=== PATIENT | male | born 1945 | race Caucasian/White ===

== ENCOUNTER 2016-05-06 10:46 | Inpatient (IN) | payer MEDICARE ==
[2016-05-06] VITALS (12 sets, daily range): BP systolic 97–124; BP diastolic 71–91
[~2016-05-06] VITALS: Ht 177.8 cm; Wt 108.0 kg
[~2016-05-06 10:46] MED LIST: AMIO200T10 PO; AMIO400T5 PO; ASPI-875 PO; ATOR10TA66 PO; BILB500C PO; DIGO125T PO; DILT180C82 PO; DILT360C19 PO; DILT360C30 PO; DULO60CA58 PO; FRSM40T PO; FURO20TA4 PO; FURO40TA4 PO; GRAP50CA5 PO; LAMO25TA13 PO; LUTE20CA2 PO; MAGN400C PO; METO25TA2 PO; MTP25TSR PO; MULT-974 PO; OMG1KC PO; PANT40TA2 PO; POTA10CA43 PO; RIVA20TA2 PO; SUCR1TAB36 PO; SULF1TAB35 PO; WARF5TAB8 PO; WARF7.5T PO; WARF7.5T49 PO; WRF2T PO; WRF5T PO; [UNRECOGNIZED DRUG - OTHER] PO
[2016-05-06] MEDS ORDERED: ASPIRIN 81 MG CHEW (CHILDREN'S ASA) PO ONE (11:30)
[2016-05-06] MEDS ORDERED: DILTIAZEM 25 MG/5 ML INJ (CARDIZEM) VIAL IVP ONE (11:30)
[2016-05-06] MEDS ORDERED: DILTIAZEM DRIP 100 MG in SODIUM CHLORIDE (ADD-VANTAGE) 100 ML IV SCH (11:30)
--- NOTE | 2016-05-06 11:35 | ED Respiratory ---
General Chief Complaint: Respiratory Problems Stated Complaint: SOA/RETAINING FLUID Nursing Triage Note: AMBULATED TO ROOM 03 WITH COMPLAINTS OF SOA FOR PAST MONTH. STATES IT FEELS LIKE IT DID WHEN HE HAD FLUID BUILT UP. STATES HE TOOK X4 LEFTOVER LASIX 40MG PILLS OVER THE LAST WEEK THAT HE THINKS HAS HELPED SOME. Source: patient Exam Limitations: no limitations History of Present Illness Time seen by provider: 11:30 Initial Comments To ER with complaints of shortness of breath for one month. States that he had an episode of atrial fibrillation in 2012 and was given Lasix. Over the past week he's been taking 40 mg Lasix as needed which she does feel helps with the dyspnea. He was ultimately cardioverted and states that he was taken off his warfarin since then. His only anticoagulation is baby aspirin. He is on diltiazem. Follows with Dr. Lujan and Dr. Gunderson. He denies chest pain. Timing/Duration: just prior to arrival, constant, getting worse Severity: moderate Associated Symptoms: shortness of breath Allergies and Home Medications Allergies Coded Allergies: No Known Drug Allergies (Unverified , 12/13/08) Home Medications 1 OZ PO DAILY (Reported) 1 OZ PO DAILY (Reported) 1 TAB PO DAILY (Reported) 1 TAB PO DAILY (Reported) 1 TAB PO DAILY (Reported) 1 TAB PO DAILY (Reported) 1 TAB PO DAILY (Reported) Aspirin 81 Mg Tablet.dr 81 MG PO DAILY (Reported) Atorvastatin Calcium 10 Mg Tablet 10 MG PO HS (Reported) Beta-Carotene(A) W-C & E/Min 1 Each Capsule 1 CAP PO DAILY (Reported) Bilberry Fruit 500 Mg Capsule 500 MG PO DAILY (Reported) Diltiazem HCl 360 Mg Capsule.er 360 MG PO DAILY (Reported) Duloxetine HCl 60 Mg Capsule.dr 60 MG PO DAILY (Reported) Furosemide 40 Mg Tablet 40 MG PO DAILY PRN PRN SHORTNESS OF BREATH (Reported) Garlic 1,000 Mg Capsule 1,000 MG PO DAILY (Reported) Lutein 20 Mg Capsule 20 MG PO DAILY (Reported) Melatonin/Pyridoxine HCl (B6) 1 Each Tab.mphase 10 MG PO HS PRN PRN SLEEP ( Reported) Quetiapine Fumarate 25 Mg Tablet 25 MG PO HS PRN PRN SLEEP (Reported) Constitutional: see HPI EENTM: see HPI Respiratory: see HPI dyspnea on exertion short of breath Cardiovascular: see HPINo chest pain, No edema, Hx of Intervention palpitationsNo syncope, No vascular heart diseas Genitourinary: no symptoms reported Musculoskeletal: no symptoms reported Skin: no symptoms reported Psychiatric/Neurological: No Symptoms Reported Hematologic/Lymphatic: No Symptoms Reported Immunological/Allergic: no symptoms reported Past Lyackci-Ihslpc-Usfird Hx Patient Social History Alcohol Use: Denies Use Recreational Drug Use: No Smoking Status: Never a Smoker Recent Foreign Travel: No Contact w/Someone Who Travel: No Recent Infectious Disease Expo: No Recent Hopitalizations: No Physical Abuse Screen: No Sexual Abuse: No Immunizations Up To Date Date of Pneumonia Vaccine: September 01, 2012 Surgeries HX Surgeries: Yes (COLONOSCOPY/Lg Polyp removed) Respiratory Hx Respiratory Disorders: No Cardiovascular Hx Cardiac Disorders: Yes Cardiac Disorders: Atrial Fibrillation, Cardiomyopathy, High Cholesterol, Hypertension Neurological Hx Neurological Disorders: No Reproductive System Hx Reproductive Disorders: No Genitourinary Hx Genitourinary Disorders: No Gastrointestinal Hx Gastrointestinal Disorders: Yes Gastrointestinal Disorders: Polyps Musculoskeletal Hx Musculoskeletal Disorders: Yes (BROKEN FINGER) Endocrine Hx Endocrine Disorders: No HEENT HX ENT Disorders: No Cancer Hx Cancer: No Psychosocial Hx Psychiatric Problems: No Integumentary HX Skin/Integumentary Disorder: No Blood Transfusions Hx Blood Disorders: No Physical Exam Vital Signs Vital Sign - Last 12Hours 05/06/16 05/06/16 11:15 11:33 Temp 98.9 Pulse 82 Resp 18 B/P 123/111 Pulse Ox 95 O2 Delivery Room Air O2 Flow Rate 2 Capillary Refill : Less Than 3 Seconds General Appearance: WD/WN no apparent distress Eyes: Bilateral Eye EOMI, Bilateral Eye Normal Inspection, Bilateral Eye PERRL HEENT: PERRL/EOMI normal ENT inspection Neck: non-tender full range of motion Respiratory: normal breath sounds no respiratory distress no accessory muscle use Cardiovascular: tachycardia irregularly irregular Gastrointestinal: normal bowel sounds non tender soft Neurologic/Psychiatric: alert normal mood/affect oriented x 3 Skin: normal color warm/dry (YES) Progress/Results/Core Measures Results/Orders Lab Results Laboratory Tests Test 05/06/16 11:25 Range/Units Activated Partial Thromboplast Time 27 24-35 SEC Alanine Aminotransferase (ALT/SGPT) 18 0-55 U/L Albumin 4.2 3.2-4.5 G/DL Alkaline Phosphatase 81 40-136 U/L Anion Gap 9 5-14 MMOL/L Aspartate Amino Transf (AST/SGOT) 17 5-34 U/L B-Type Natriuretic Peptide 302.1 H <100.0 PG/ML BUN/Creatinine Ratio 13 Basophils # (Auto) 0.0 0.0-0.1 10^3/uL Basophils (%) (Auto) 1 0-10 % Blood Urea Nitrogen 16 7-18 MG/DL Calcium Level 9.3 8.5-10.1 MG/DL Carbon Dioxide Level 25 21-32 MMOL/L Chloride Level 108 H 98-107 MMOL/L Creatinine 1.28 0.60-1.30 MG/DL Eosinophils # (Auto) 0.1 0.0-0.3 10^3/uL Eosinophils (%) (Auto) 2 0-10 % Estimat Glomerular Filtration Rate 56 Glucose Level 140 H 70-105 MG/DL Hematocrit 42 40-54 % Hemoglobin 13.1 L 13.3-17.7 G/DL INR Comment 1.1 0.8-1.4 Lymphocytes # (Auto) 1.0 1.0-4.0 X 10^3 Lymphocytes (%) (Auto) 17 12-44 % Magnesium Level 2.6 H 1.8-2.4 MG/DL Mean Corpuscular Hemoglobin 26 25-34 PG Mean Corpuscular Hemoglobin Concent 32 32-36 G/DL Mean Corpuscular Volume 82 80-99 FL Mean Platelet Volume 9.4 7.4-10.4 FL Monocytes # (Auto) 0.6 0.0-1.0 X 10^3 Monocytes (%) (Auto) 10 0-12 % Myoglobin 52.7 10.0-92.0 NG/ML Neutrophils # (Auto) 4.4 1.8-7.8 X 10^3 Neutrophils (%) (Auto) 71 42-75 % Platelet Count 312 130-400 10^3/uL Potassium Level 4.4 3.6-5.0 MMOL/L Prothrombin Time 13.4 12.2-14.7 SEC Red Blood Count 5.09 4.35-5.85 10^6/uL Red Cell Distribution Width 14.5 10.0-14.5 % Sodium Level 142 135-145 MMOL/L Total Bilirubin 0.7 0.1-1.0 MG/DL Total Protein 7.1 6.4-8.2 G/DL Troponin I < 0.30 <0.30 NG/ML White Blood Count 6.2 4.3-11.0 10^3/uL My Orders Orders-YI RAINES APRN Cbc With Automated Diff (05/06/16 11:27) Magnesium (05/06/16 11:27) Chest 1 View, Ap/Pa Only (05/06/16 11:27) Ekg Tracing (05/06/16 11:27) Cardiac Profile 1 (05/06/16 11:27) Comprehensive Metabolic Panel (05/06/16 11:27) Myoglobin Serum (05/06/16 11:27) Protime With Inr (05/06/16 11:27) Partial Thromboplastin Time (05/06/16 11:27) O2 (05/06/16 11:27) Monitor-Rhythm Ecg Trace Only (05/06/16 11:27) Lipid Panel (05/07/16 06:00) Aspirin Chewable Tablet (Baby Aspirin Ch (05/06/16 11:30) Saline Lock/Iv-Start (05/06/16 11:27) Sodium Chloride (Ad... W/Diltiazem Drip (05/06/16 11:30) Diltiazem Injection (Cardizem Injection) (05/06/16 11:30) BNP (05/06/16 12:12) Heparin Drip 62179 Unit/500ml (Heparin (05/06/16 12:17) Heparin (Bolus Per Protocol) (Heparin (B (05/06/16 12:30) Medications Given in ED Current Medications Medications Dose Ordered Sig/Kelli Route Start Time Stop Time Status Last Admin Dose Admin Aspirin 324 mg ONCE ONCE PO 05/06/16 11:30 05/06/16 11:31 DC 05/06/16 11:44 324 MG Diltiazem HCl 20 mg 20 mg ONCE ONCE IVP 05/06/16 11:30 05/06/16 11:31 DC 05/06/16 11:45 20 MG Heparin Sodium/ Dextrose 500 ml @ 0 mls/hr Q0M ONCE IV 05/06/16 12:17 05/06/16 12:18 DC 05/06/16 12:47 24 MLS/HR Vital Signs/I&O Vital Sign - Last 12Hours 05/06/16 05/06/16 05/06/16 11:15 11:33 11:47 Temp 98.9 98.0 Pulse 82 151 Resp 18 16 B/P 123/111 130/80 Pulse Ox 95 94 O2 Delivery Room Air Nasal Cannula O2 Flow Rate 2 2.00 Blood Pressure Mean: 115 Diagnostic Imaging Diagonstic Imaging: Xray Comments NAME: FELISHA ANGELO [facility] REC#: [id number] PT STATUS: REG ER : 1945 PHYSICIAN: YI RAINES APRN ADMIT DATE: 05/06/16/ER Draft Date of Exam:05/06/16 CHEST 1 VIEW, AP/PA ONLY Portable upright radiograph of the chest. INDICATION: Shortness of breath. COMPARISON: 09/06/12. FINDINGS: There is mild left basilar atelectasis medially. There is a question of a small hiatal hernia. The heart size is moderately enlarged without vascular congestion or pulmonary edema. No significant effusion or pneumothorax. IMPRESSION: Cardiomegaly. Suggestion of mild left basilar atelectasis and question of a small hiatal hernia. Dictated on workstation # [id number] Dict: 05/06/16 1225 Trans: 05/06/16 1230 [facility] [id number] Interpreted by: BETSY DING MD Electronically signed by: Departure Communication Time/Spoke to Admitting Phy: 12:32 Communication I spoke with Dr. Gagnon. We'll admit the patient to ICU, Mariam castro to consult. Time/Spoke to Consulting Physi: 12:32 Communication/Consulting Spoke with Dr. Avila who is on-call for Dr. Stoll. Agrees to admit the patient. Impression Impression: Primary Impression: Atrial fibrillation with RVR Additional Impression: Dyspnea Disposition: ADMITTED INPATIENT Condition: Stable Decision to Admit Reason: Admit from ER (General) Decision to Admit/Date: May 06, 2016 Time/Decision to Admit Time: 12:32 Departure-Patient Inst. Decision time for Depature: 12:32 Referrals: KATE LUJAN MD (PCP/Family) Primary Care Physician YI RAINES APRN May 06, 2016 11:35
[2016-05-06 11:37] LABS: BASOPHILS % (AUTO) 1 % (0-10); EOSINOPHILS # (AUTO) 0.1 10^3/uL (0.0-0.3); EOSINOPHILS % (AUTO) 2 % (0-10); LYMPHOCYTES % (AUTO) 17 % (12-44); MEAN CORPUSCULAR HEMOGLOBIN 26 PG (25-34); MEAN CORPUSCULAR HGB CONC 32 G/DL (32-36); MEAN CORPUSCULAR VOLUME 82 FL (80-99); MEAN PLATELET VOLUME 9.4 FL (7.4-10.4); MONOCYTES # (AUTO) 0.6 X 10^3 (0.0-1.0); MONOCYTES % (AUTO) 10 % (0-12); NEUTROPHILS # (AUTO) 4.4 X 10^3 (1.8-7.8); NEUTROPHILS % (AUTO) 71 % (42-75); PLATELET COUNT 312 10^3/uL (130-400); RED BLOOD COUNT 5.09 10^6/uL (4.35-5.85); RED CELL DISTRIBUTION WIDTH 14.5 % (10.0-14.5); WHITE BLOOD COUNT 6.2 10^3/uL (4.3-11.0)
[2016-05-06 11:48] LABS: INR 1.1 (0.8-1.4); PROTHROMBIN TIME PATIENT 13.4 SEC (12.2-14.7)
[2016-05-06 11:57] LABS: ALANINE AMINOTRANSFERASE 18 U/L (0-55); ALBUMIN 4.2 G/DL (3.2-4.5); ANION GAP 9 MMOL/L (5-14); ASPARTATE AMINO TRANSFERASE 17 U/L (5-34); BILIRUBIN,TOTAL 0.7 MG/DL (0.1-1.0); BLOOD UREA NITROGEN 16 MG/DL (7-18); BUN/CREATININE RATIO 13; CALCIUM 9.3 MG/DL (8.5-10.1); CARBON DIOXIDE 25 MMOL/L (21-32); CHLORIDE 108 MMOL/L (98-107); CREATININE SERUM 1.28 MG/DL (0.60-1.30); GFR ESTIMATED 56; GLUCOSE 140 MG/DL (70-105); MAGNESIUM 2.6 MG/DL (1.8-2.4); POTASSIUM 4.4 MMOL/L (3.6-5.0); SODIUM 142 MMOL/L (135-145); TOTAL PROTEIN 7.1 G/DL (6.4-8.2)
[2016-05-06 12:03] LABS: MYOGLOBIN SERUM 52.7 NG/ML (10.0-92.0)
[2016-05-06] MEDS ORDERED: HEParin DRIP 25000 UNIT/500ML 500 ML IV ONE (12:17)
[2016-05-06] MEDS ORDERED: HEParin 1000 UNIT/ML (10ML VIAL) FOR BOLUS IV ONE (12:30)
--- NOTE | 2016-05-06 12:30 | Diagnostic Imaging Report ---
Portable upright radiograph of the chest. INDICATION: Shortness of breath. COMPARISON: 09/06/12. FINDINGS: There is mild left basilar atelectasis medially. There is a question of a small hiatal hernia. The heart size is moderately enlarged without vascular congestion or pulmonary edema. No significant effusion or pneumothorax. IMPRESSION: Cardiomegaly. Suggestion of mild left basilar atelectasis and question of a small hiatal hernia. Dictated by: Dictated on workstation # [id number]
--- NOTE | 2016-05-06 12:35 | Consultation-Cardiology ---
[facility]-Cardiology Cardiology Consultation Date of Consultation 05/06/16 Date of Admission Indication: Afib with RVR, dyspnea. HPI Patient is a 71 y/o male with history of Afib s/p cardioversion in 2012, CAD, HTN. Presented to the ER today with complaints of increased dyspnea and edema over the past several weeks. EKG revealed afib with RVR. Denies any CP, lightheadedness or syncope. Reports peripheral edema has been increasing over last several month. Some improvement with taking old lasix Rx he had at home. Currently denies any dyspnea. Patient was seen and evaluated with Debra, he has history of paroxysmal atrial fibrillation with electrical cardioversion done in 2012, failed intervention in the past on his right coronary artery. Has been having increasing dyspnea on exertion, pedal edema, no chest pain. No syncope or near syncopal episode, came into the emergency room and noted to have atrial fibrillation and rapid ventricular response, we had a long discussion about the etiology of his disease, treatment options, anticoagulation. Home Medications & Allergies Allergies: Coded Allergies: No Known Drug Allergies (Unverified , 12/13/08) Home Medication List Reviewed: Yes medication list reviewed WEF-Uukflm-Damnqo Hx Patient Social History Marital Status: Alcohol Use: Denies Use Recreational Drug Use: No Smoking Status: Never a Smoker Recent Foreign Travel: No Recent Infectious Disease Expo: No Recent Hopitalizations: No Physical Abuse Screen: No Sexual Abuse: No Immunizations Up To Date Date of Pneumonia Vaccine: September 01, 2012 Past Medical History CAD, PAF, HTN, HLP, LBBB Family Medical History Significant Family History: No Pertinent Family Hx Family Medical Hx noncontributory to his current condition Family History: Constitutional: No chills, No diaphoresis, No dizziness, No fever, malaise weakness EENTM: No blurred vision, No double vision, No throat pain, No vision loss Respiratory: No cough, dyspnea on exertion short of breath Cardiovascular: No chest pain, edema palpitationsNo syncope, No vascular heart diseas Gastrointestinal: No abdominal pain, No constipation, No diarrhea, No dysphagia Genitourinary: No dysuria, No frequency Musculoskeletal: No back pain, No joint pain Skin: No dryness, No rash Psychiatric/Neurological: Denies Anxiety, Denies Depressed Reviewed Test Results Reviewed Test Results Lab Laboratory Tests 05/06/16 11:25: Activated Partial Thromboplast Time 27, Alanine Aminotransferase (ALT/SGPT) 18, Albumin 4.2, Alkaline Phosphatase 81, Anion Gap 9, Aspartate Amino Transf (AST/ SGOT) 17, BUN/Creatinine Ratio 13, Basophils # (Auto) 0.0, Basophils (%) (Auto) 1, Blood Urea Nitrogen 16, Calcium Level 9.3, Carbon Dioxide Level 25, Chloride Level 108H, Creatinine 1.28, Eosinophils # (Auto) 0.1, Eosinophils (%) (Auto) 2 , Estimat Glomerular Filtration Rate 56, Glucose Level 140H, Hematocrit 42, Hemoglobin 13.1L, INR Comment 1.1, Lymphocytes # (Auto) 1.0, Lymphocytes (%) ( Auto) 17, Magnesium Level 2.6H, Mean Corpuscular Hemoglobin 26, Mean Corpuscular Hemoglobin Concent 32, Mean Corpuscular Volume 82, Mean Platelet Volume 9.4, Monocytes # (Auto) 0.6, Monocytes (%) (Auto) 10, Myoglobin 52.7, Neutrophils # (Auto) 4.4, Neutrophils (%) (Auto) 71, Platelet Count 312, Potassium Level 4.4, Prothrombin Time 13.4, Red Blood Count 5.09, Red Cell Distribution Width 14.5, Sodium Level 142, Total Bilirubin 0.7, Total Protein 7.1, Troponin I < 0.30, White Blood Count 6.2 ECG Impression ECG Initial ECG Rhythm: A Fib/Flutter Physical Exam Vital Signs Vital Sign - Last 12Hours 05/06/16 05/06/16 11:15 11:33 Temp 98.9 Pulse 82 Resp 18 B/P 123/111 Pulse Ox 95 O2 Delivery Room Air O2 Flow Rate 2 Capillary Refill : Less Than 3 Seconds General Appearance: No Apparent Distress WD/WN HEENT: PERRL/EOMI TMs Normal Neck: Non Tender Supple Respiratory: Chest Non Tender Lungs Clear Normal Breath Sounds No Respiratory Distress Cardiovascular: No Gallop No Murmur Normal Peripheral Pulses Irregularly Irregular Tachycardia Other (+1 edema) Gastrointestinal: Non Tender Soft Rectal: Deferred Back: No CVA Tenderness Extremity: Non Tender No Calf Tenderness Neurologic/Psychiatric: 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 Will start on heparin. History of PAF with hx of cardioversion in October 2012. Had refused OAC in the past. Conitnue to monitor telemetry. planning for SYLVESTER with electrical cardioversion for tomorrow if he did not convert spontaneously. [id number] score is 3, yearly risk of stroke without oral anticoagulation is 3.2 percent. We discussed in length the management plan, recommended oral anticoagulation, patient is concerned about his history of GI bleed, understand the risk of stroke, agreed on starting oral anticoagulation for now. Possibility the use of Reveal device with long-term monitoring for the need for oral anticoagulation CAD- history of unsuccessful stenting of an ostial right coronary by Dr. Velazco in July 2012. He was reported to have 80% ostial stenosis of the right coronary. The rest of the coronaries did not indicate significant disease. currently asymptomatic. Continue to monitor Hypertension, currently borderline hypotensive on Cardizem drip, continue to monitor closely. HLP- maintained on statin as outpatient. Continue to monitor. Hx LBBB History of GI bleed in 07/2015 with gastric ulcer per EGD by Dr. Jalloh. Thank you for allowing us to participate in the management of Mr. Whitaker. This is ISMAEL Vega as a scribe for Dr. Avila. Patient was seen and evaluated with Debra, I agree with the current scribe, I performed the interview and physical examination by myself. Discussed in length the management plan, interviewed the patient and his , answered all their questions, on examination lungs were clear to auscultation, heart is irregular. Patient is in atrial fibrillation with borderline tachycardia, better on Cardizem drip and heparin drip. He will need oral anticoagulation due to his increased risk of stroke. We discussed the use of Reveal device as an outpatient, medical therapy at this time. I didn't view adjustment to the note and I used Italic Font DEBRA YAP May 06, 2016 12:35 GERMAIN AVILA MD May 06, 2016 15:11
[2016-05-06] MEDS ORDERED: [UNRECOGNIZED DRUG - OTHER] PO (13:06)
[2016-05-06] MEDS ORDERED: DILT360C30 PO (13:06)
[2016-05-06] MEDS ORDERED: GARL10002 PO (13:06)
[2016-05-06] MEDS ORDERED: BETA1CAP2 PO (13:06)
[2016-05-06] MEDS ORDERED: ASPI-983 PO (13:06)
[2016-05-06] MEDS ORDERED: [UNRECOGNIZED DRUG - CODE] PO (13:06)
[2016-05-06] MEDS ORDERED: MELA1TAB20 PO (13:06)
[2016-05-06] MEDS ORDERED: QUET25TA73 PO (13:06)
[2016-05-06] MEDS ORDERED: [UNRECOGNIZED DRUG - OTHER] PO (13:06)
[2016-05-06] MEDS ORDERED: FURO40TA4 PO (13:06)
[2016-05-06] MEDS ORDERED: BILB500C PO (13:06)
[2016-05-06] MEDS ORDERED: [UNRECOGNIZED DRUG - OTHER] PO (13:06)
[2016-05-06] MEDS ORDERED: [UNRECOGNIZED DRUG - OTHER] PO (13:06)
[2016-05-06] MEDS ORDERED: [UNRECOGNIZED DRUG - OTHER] PO (13:06)
[2016-05-06] MEDS ORDERED: [UNRECOGNIZED DRUG - OTHER] PO (13:06)
--- NOTE | 2016-05-06 15:18 | History & Physical-Hospitalist ---
ELIN NEAL MED STUDENT 05/06/16 1518: HPI History of Present Illness: HPI/Chief Complaint CC: short of breath HPI: Mr. Whitaker is a 71yoM with a PMH of CAD, HTN, and previous afib s/p cardioversion in 2012 with increased work of breathing over the past several weeks. He tried taking his "leftover" furosemide at home a few times over the last month which he reports helped at the time. He denies any chest pain, headache, vision changes, n/v, diarrhea, fevers/chills, weakness, numbness. His PCP is Dr. Gay Lujan. He is completely independent and lives at home with his . Source: patient Exam Limitations: no limitations Date Seen 05/06/16 Attending Physician Chey Aguero DO PCP Gay Lujan MD Referring Physician Date of Admission May 06, 2016 at 12:29 Home Medications & Allergies Home Medications Reviewed patient Home Medication Reconciliation Form Allergies Coded Allergies: No Known Drug Allergies (Unverified , 12/13/08) Past Adgxloj-Vsldvf-Lzkzff Hx Patient Social History Marrital Status: Employed/Student: employed ([employer]) Alcohol Use: Denies Use Recreational Drug Use: No Smoking Status: Never a Smoker Physical Abuse Screen: No Sexual Abuse: No Recent Foreign Travel: No Contact w/other who traveled: No Recent Hopitalizations: No Recent Infectious Disease Expo: No Immunizations Up To Date Date of Pneumonia Vaccine: September 01, 2012 Surgeries HX Surgeries: Yes (COLONOSCOPY/Lg Polyp removed) Surgeries: Abdominal (partial colectomy 2009) Respiratory Hx Respiratory Disorders: No Cardiovascular Hx Cardiovascular Disorders: Yes Cardiac Disorders: Atrial Fibrillation, Coronary Artery Disease, High Cholesterol, Hypertension Neurological Hx Neurological Disorders: No Reproductive System Hx Reproductive Disorders: No Genitourinary Hx Genitourinary Disorders: No Gastrointestinal Hx Gastrointestinal Disorders: Yes Gastrointestinal Disorders: Polyps Musculoskeletal Hx Musculoskeletal Disorders: Yes (BROKEN FINGER) Endocrine Hx Endocrine Disorders: No HEENT HX ENT Disorders: No Cancer Hx Cancer: No Psychosocial Hx Psychiatric Problems: Yes Behavioral Health Disorders: Depression Integumentary HX Skin/Integumentary Disorder: No Blood Transfusions Hx Blood Disorders: No Family Medical History Significant Family History: No Pertinent Family Hx Family Hx: Review of Systems Respiratory: dyspnea on exertion All Other Systems Reviewed Negative Unless Noted: Yes Physical Exam Physical Exam Vital Signs Vital Sign - Last 12Hours 05/06/16 05/06/16 11:15 11:33 Temp 98.9 Pulse 82 Resp 18 B/P 123/111 Pulse Ox 95 O2 Delivery Room Air O2 Flow Rate 2 Capillary Refill : Less Than 3 Seconds General Appearance: No Apparent Distress WD/WN Eyes: Bilateral Eye EOMI, Bilateral Eye Normal Inspection, Bilateral Eye PERRL HEENT: Normal ENT Inspection Pharynx Normal Neck: Full Range of Motion Normal Inspection Non Tender Supple Respiratory: Chest Non Tender Lungs Clear Normal Breath Sounds No Accessory Muscle Use Cardiovascular: No JVD No Murmur Irregularly Irregular Tachycardia Gastrointestinal: Normal Bowel Sounds No Organomegaly No Pulsatile Mass Non Tender Soft Rectal: Deferred Back: Normal Inspection Extremity: Normal Capillary Refill Normal Range of Motion Non Tender No Calf Tenderness Neurologic/Psychiatric: Alert Oriented x3 No Motor/Sensory Deficits Normal Mood/Affect radiation therapy technologist II-XII Norm as Tested Skin: Normal Color Warm/Dry Lymphatic: No Adenopathy Results Results/Procedures Lab Laboratory Tests 05/06/16 11:25 Radiology chest xray 05/06/16: Cardiomegaly. Suggestion of mild left basilar atelectasis and question of a small hiatal hernia. Assessment/Plan Admission Diagnosis AFib with RVR Assessment and Plan 71yo male with PMH of CAD, afib s/p cardioversion in 2012 with increased work of breathing over the last month and Afib with RVR on EKG 1. Afib with RVR -cardiology consult -start heparin drip -diltiazem drip -NPO at midnight, if he does not convert to sinus rhythm over night with do SYLVESTER tomorrow, likely afternoon, for cardioversion 2. CAD -continue DRUG ABUSE TREATMENT SPECIALIST atorvastatin 10mg -continue DRUG ABUSE TREATMENT SPECIALIST baby aspirin 3. HTN -currently on diltiazem drip, blood pressure is stable with MAP in the 80's 4. 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 Pt has planned cardioversion [id number] Patient Interview: Pt states he had shock tx 3.5 years ago. Pt states his PCP is Dr. Lujan. 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 Physical exam was stable. Pt denies using CPAP or night time O2. Pt declines pain medicine but would like something for his dry throat. Pt states he will most likely spend another night at [facility]. Pt states he was admitted to [facility] in July. Pt states he had a hiatal hernia that ruptured a blood vessel. Pt states he was taken off Warfarin at this time. Scribed by Toro Salvador under the direct supervision of Dr. Aguero. Source: patient Exam Limitations: no limitations Home Medications & Allergies Allergies Coded Allergies: No Known Drug Allergies (Unverified , 12/13/08) Past Yokivfz-Talbzw-Pnmltq Hx Patient Social History Marrital Status: Employed/Student: employed ([employer] in [facility]) Smoking Status: Never a Smoker Surgeries HX Surgeries: Yes Surgeries: Abdominal (partial colectomy 2009) Respiratory Hx Respiratory Disorders: No Cardiovascular Hx Cardiovascular Disorders: Yes Cardiac Disorders: Atrial Fibrillation, Coronary Artery Disease, High Cholesterol, Hypertension Neurological Hx Neurological Disorders: No Genitourinary Hx Genitourinary Disorders: No Gastrointestinal Hx Gastrointestinal Disorders: No Musculoskeletal Hx Musculoskeletal Disorders: No Endocrine Hx Endocrine Disorders: No HEENT HX ENT Disorders: No Cancer Hx Cancer: No Psychosocial Hx Psychiatric Problems: Yes Behavioral Health Disorders: Anxiety, Depression Blood Transfusions Hx Blood Disorders: No Family Medical History Significant Family History: Hypertension Family Hx: Review of Systems Constitutional: no symptoms reported EENTM: no symptoms reported Respiratory: dyspnea on exertion Cardiovascular: palpitations Gastrointestinal: no symptoms reported Genitourinary: no symptoms reported Musculoskeletal: no symptoms reported Skin: no symptoms reported Psychiatric/Neurological: No Symptoms Reported All Other Systems Reviewed Negative Unless Noted: Yes Physical Exam Physical Exam Vital Signs Vital Sign - Last 12Hours 05/06/16 05/06/16 11:15 11:33 Temp 98.9 Pulse 82 Resp 18 B/P 123/111 Pulse Ox 95 O2 Delivery Room Air O2 Flow Rate 2 General Appearance: No Apparent Distress WD/WN Chronically ill Eyes: Bilateral Eye Normal Inspection, Bilateral Eye PERRL HEENT: PERRL/EOMI Normal ENT Inspection Pharynx Normal Neck: Full Range of Motion Normal Inspection Non Tender Supple Carotid Bruit Respiratory: Chest Non Tender Lungs Clear Normal Breath Sounds No Accessory Muscle Use No Respiratory Distress Cardiovascular: No Edema No Gallop No JVD No Murmur Normal Peripheral Pulses Irregularly Irregular Tachycardia Gastrointestinal: Normal Bowel Sounds No Organomegaly No Pulsatile Mass Non Tender Soft Back: Normal Inspection No CVA Tenderness No Vertebral Tenderness Extremity: Normal Capillary Refill Normal Inspection Normal Range of Motion Non Tender No Calf Tenderness No Pedal Edema Neurologic/Psychiatric: Alert Oriented x3 No Motor/Sensory Deficits Normal Mood/Affect Skin: Normal Color Warm/Dry Lymphatic: No Adenopathy Results Results/Procedures Lab Laboratory Tests 05/06/16 11:25 05/07/16 02:26 Assessment/Plan Admission Diagnosis Recurrent type of AF s/p cardioversion 2012 HLP CAD HTN Depression Assessment and Plan cardioversion as planned Cardizem as ordered Copy Copies To 1: GAY LUJAN MD, ZACHARY MED STUDENT May 06, 2016 15:18 CHEY AGUERO DO May 07, 2016 07:31
[2016-05-06] MEDS ORDERED: FLU TRIvalent (5 YOA+) 2016-17 (AFLURIA) 0.5 ML IM ONE (16:15)
[2016-05-06] MEDS ORDERED: DILTIAZEM 100 MG/VIAL (CARDIZEM) ADD-VANTAGE IV ONE (19:59)
[2016-05-06] MEDS ORDERED: SODIUM CHLORIDE (ADD-VANTAGE) 100 ML IV ONE (19:59)
[2016-05-06] MEDS ORDERED: HEParin DRIP 25000 UNIT/500ML (FULL THERAPY) IV SCH (20:00)
[2016-05-06] MEDS ORDERED: CATHETER FLUSH 10 ML SYR IV PRN (20:00)
[2016-05-06] MEDS: HEParin 1000 UNIT/ML BOLUS (FULL THERAPY) IV PRN (20:02)
[2016-05-06] MEDS: DILTIAZEM DRIP 100 MG/NS 100 ML IV SCH ×2 (20:07)
[2016-05-06] MEDS: CATHETER FLUSH 10 ML SYR IV SCH (20:08)
[2016-05-07] VITALS (19 sets, daily range): BP systolic 89–128; BP diastolic 58–95
[2016-05-07 02:34] LABS: BASOPHILS % (AUTO) 1 % (0-10); EOSINOPHILS # (AUTO) 0.2 10^3/uL (0.0-0.3); EOSINOPHILS % (AUTO) 4 % (0-10); LYMPHOCYTES # (AUTO) 1.2 X 10^3 (1.0-4.0); LYMPHOCYTES % (AUTO) 21 % (12-44); MEAN CORPUSCULAR HEMOGLOBIN 26 PG (25-34); MEAN CORPUSCULAR HGB CONC 32 G/DL (32-36); MEAN CORPUSCULAR VOLUME 82 FL (80-99); MEAN PLATELET VOLUME 9.5 FL (7.4-10.4); MONOCYTES # (AUTO) 0.6 X 10^3 (0.0-1.0); MONOCYTES % (AUTO) 10 % (0-12); NEUTROPHILS # (AUTO) 3.7 X 10^3 (1.8-7.8); NEUTROPHILS % (AUTO) 65 % (42-75); PLATELET COUNT 271 10^3/uL (130-400); RED BLOOD COUNT 4.86 10^6/uL (4.35-5.85); RED CELL DISTRIBUTION WIDTH 14.6 % (10.0-14.5); WHITE BLOOD COUNT 5.8 10^3/uL (4.3-11.0)
[2016-05-07 02:54] LABS: ANION GAP 11 MMOL/L (5-14); BLOOD UREA NITROGEN 14 MG/DL (7-18); BUN/CREATININE RATIO 14; CALCIUM 8.4 MG/DL (8.5-10.1); CARBON DIOXIDE 23 MMOL/L (21-32); CHLORIDE 107 MMOL/L (98-107); CREATININE SERUM 0.97 MG/DL (0.60-1.30); GFR ESTIMATED > 60; GLUCOSE 108 MG/DL (70-105); MAGNESIUM 2.4 MG/DL (1.8-2.4); PHOSPHORUS 4.8 MG/DL (2.3-4.7); SODIUM 141 MMOL/L (135-145)
[2016-05-07] MEDS: CATHETER FLUSH 10 ML SYR IV SCH ×3 (06:00→20:17)
[2016-05-07] MEDS ORDERED: MAGNESIUM 1 GM/100 ML IVPB 100 ML IV SCH (06:00)
[2016-05-07] MEDS ORDERED: KCL 20 MEQ TAB (K-DUR) PO SCH (06:00)
[2016-05-07] MEDS ORDERED: POTASSIUM CL 10MEQ/50ML IVPB 50 ML IV SCH (06:00)
--- NOTE | 2016-05-07 08:12 | Pulmonary Consultation ---
History of Present Illness History of Present Illness Date of Consultation 05/07/16 08:06 Date of Admission Reason for Visit: Afib with RVR, dyspnea. History of Present Illness 71yo with hx of Afib, CAD, HTN presented secondary to progressive SOB and LE edema over last few weeks. Home lasix helped a little with SOB. SOB has improved since admission. I am consulted for ICU management. Allergies and Home Medications Allergies Coded Allergies: No Known Drug Allergies (Unverified , 12/13/08) Home Medications 1 OZ PO DAILY (Reported) 1 OZ PO DAILY (Reported) 1 TAB PO DAILY (Reported) 1 TAB PO DAILY (Reported) 1 TAB PO DAILY (Reported) 1 TAB PO DAILY (Reported) 1 TAB PO DAILY (Reported) Aspirin 81 Mg Tablet.dr 81 MG PO DAILY (Reported) Atorvastatin Calcium 10 Mg Tablet 10 MG PO HS (Reported) Beta-Carotene(A) W-C & E/Min 1 Each Capsule 1 CAP PO DAILY (Reported) Bilberry Fruit 500 Mg Capsule 500 MG PO DAILY (Reported) Diltiazem HCl 360 Mg Capsule.er 360 MG PO DAILY (Reported) Duloxetine HCl 60 Mg Capsule.dr 60 MG PO DAILY (Reported) Furosemide 40 Mg Tablet 40 MG PO DAILY PRN PRN SHORTNESS OF BREATH (Reported) Garlic 1,000 Mg Capsule 1,000 MG PO DAILY (Reported) Lutein 20 Mg Capsule 20 MG PO DAILY (Reported) Melatonin/Pyridoxine HCl (B6) 1 Each Tab.mphase 10 MG PO HS PRN PRN SLEEP ( Reported) Quetiapine Fumarate 25 Mg Tablet 25 MG PO HS PRN PRN SLEEP (Reported) Past Vyaxskr-Rpmypi-Yvwkhx Hx Patient Social History Alcohol Use: Denies Use Recreational Drug Use: No Smoking Status: Never a Smoker Recent Foreign Travel: No Contact w/Someone Who Travel: No Recent Infectious Disease Expo: No Recent Hopitalizations: No Physical Abuse Screen: No Sexual Abuse: No Immunizations Up To Date Date of Pneumonia Vaccine: September 01, 2012 Seasonal Allergies Seasonal Allergies: No Surgeries HX Surgeries: Yes Surgeries: Abdominal (partial colectomy 2009) Respiratory Hx Respiratory Disorders: No Cardiovascular Hx Cardiac Disorders: Yes Cardiac Disorders: Atrial Fibrillation, Coronary Artery Disease, High Cholesterol, Hypertension Neurological Hx Neurological Disorders: No Reproductive System Hx Reproductive Disorders: No Genitourinary Hx Genitourinary Disorders: No Gastrointestinal Hx Gastrointestinal Disorders: No Gastrointestinal Disorders: Polyps, Hiatal Hernia Musculoskeletal Hx Musculoskeletal Disorders: No Endocrine Hx Endocrine Disorders: No HEENT HX ENT Disorders: No Cancer Hx Cancer: No Psychosocial Hx Psychiatric Problems: Yes Behavioral Health Disorders: Anxiety, Depression Integumentary HX Skin/Integumentary Disorder: No Blood Transfusions Hx Blood Disorders: No Family Medical History Significant Family History: Hypertension Family Medial History: Exam Exam Vital Signs Date Time Temp Pulse Resp B/P Pulse Ox O2 Delivery O2 Flow Rate FiO2 05/07/16 06:00 122 22 104/82 92 Nasal Cannula 2.00 05/07/16 05:00 108 20 128/95 95 Nasal Cannula 2.00 05/07/16 04:00 98 Nasal Cannula 2.00 05/07/16 04:00 99.0 90 20 108/71 98 Nasal Cannula 2.00 05/07/16 03:00 92 22 120/81 93 Nasal Cannula 2.00 05/07/16 02:00 96 22 115/82 94 Nasal Cannula 2.00 05/07/16 01:00 90 18 96/63 93 Nasal Cannula 2.00 05/07/16 01:00 90 05/07/16 00:00 94 Nasal Cannula 2.00 05/07/16 00:00 80 20 97/62 91 Nasal Cannula 2.00 05/06/16 23:40 99.0 05/06/16 23:00 86 23 116/91 90 Room Air 05/06/16 22:00 81 26 108/74 92 Room Air 05/06/16 21:00 92 15 109/71 96 Room Air 05/06/16 20:07 79 124/75 05/06/16 20:00 95 Room Air 05/06/16 20:00 75 23 124/75 93 Room Air 05/06/16 19:00 99.0 106 15 110/84 95 Room Air 05/06/16 19:00 75 05/06/16 18:00 91 17 119/74 92 05/06/16 17:45 87 18 90 05/06/16 17:30 105/76 05/06/16 16:45 11 114/78 92 05/06/16 16:00 Room Air 05/06/16 16:00 98.2 05/06/16 15:45 96 21 115/75 93 05/06/16 14:45 129 14 98/80 95 05/06/16 13:59 97/90 05/06/16 13:50 Room Air 05/06/16 13:50 98.8 120 14 102/84 95 Room Air 05/06/16 13:38 98.0 115 16 98 Room Air 05/06/16 11:47 98.0 151 16 130/80 94 2.00 05/06/16 11:33 Nasal Cannula 2 05/06/16 11:15 98.9 82 18 123/111 95 Room Air I & O 05/07/16 07:00 Intake Total 660 ml Output Total 970 ml Balance -310 ml General Appearance: No Apparent Distress WD/WN Chronically ill HEENT: PERRL/EOMI Normal ENT Inspection Pharynx Normal Neck: Full Range of Motion Normal Inspection Non Tender Supple Carotid Bruit Respiratory: Chest Non Tender Lungs Clear Normal Breath Sounds No Accessory Muscle Use No Respiratory Distress Cardiovascular: No Edema No Gallop No JVD No Murmur Normal Peripheral Pulses Irregularly Irregular Tachycardia Capillary Refill: Less Than 3 Seconds Gastrointestinal: normal bowel sounds non tender soft Extremity: Normal Capillary Refill Normal Inspection Normal Range of Motion Non Tender No Calf Tenderness No Pedal Edema Neurologic/Psychiatric: Alert Oriented x3 No Motor/Sensory Deficits Normal Mood/Affect Skin: Normal Color Warm/Dry Lymphatic: No Adenopathy Results Lab Laboratory Tests 05/06/16 11:25 05/07/16 02:26 Assessment/Plan Assessment/Plan Afib with RVR Cardizem gtt. heparin -Possible SYLVESTER with electrical cardioversion today CAD- with stents Hypertension, currently borderline hypotensive on Cardizem drip, continue to monitor closely. History of GI bleed in 07/2015 with gastric ulcer Clinical Quality Measures DVT/VTE Risk/Contraindication: Risk Factor Score Per Nursin RFS Level Per Nursing on Admit: 3=High MADDIE MICHELLE DO May 07, 2016 08:12
[2016-05-07] MEDS: DILTIAZEM DRIP 100 MG/NS 100 ML IV SCH ×2 (08:54)
[2016-05-07] MEDS: ASPIRIN E.C. 81 MG (ECOTRIN) TAB PO SCH (08:55)
--- NOTE | 2016-05-07 09:26 | Progress Note-Hospitalist ---
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 Pt has planned cardioversion [id number] Patient Interview: Pt states he had shock tx 3.5 years ago. Pt states his PCP is Dr. Lujan. 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 Physical exam was stable. Pt denies using CPAP or night time O2. Pt declines pain medicine but would like something for his dry throat. Pt states he will most likely spend another night at [facility]. Pt states he was admitted to [facility] in July. Pt states he had a hiatal hernia that ruptured a blood vessel. Pt states he was taken off Warfarin at this time. Scribed by Toro Salvador under the direct supervision of Dr. Aguero. Progress Notes/Assess & Plan Date Seen 05/07/16 Admission Dx/Process AFib with RVR Diagonsis/Assessment & Plan 71yo male with PMH of CAD, afib s/p cardioversion in 2012 with increased work of breathing over the last month and Afib with RVR on EKG 1. Afib with RVR -cardiology consult -start heparin drip, PTT elevated today, follow protocol -diltiazem drip -SYLVESTER today with cardioversion 2. CAD -continue SEAWEED HARVESTER atorvastatin 10mg -continue SEAWEED HARVESTER baby aspirin 3. HTN -currently on diltiazem drip, blood pressure is stable with MAP in the 80's 4. Depression -continue SEAWEED HARVESTER duloxetine -quetiapine prn for sleep 5.Elevated BNP 6. Hyperglycemia -will continue to monitor, may be stress related 7. Herbal supplement excess use KWADWO AGUERO DO 05/08/16 1213: Progress Note Progress Notes/Assess & Plan Diagonsis/Assessment & Plan patient seen and examined didn't documented in prior H&P note Reviewed above information and deemed correct Continue plan per H&P ELIN NEAL MED STUDENT May 07, 2016 09:26 KWADWO AGUERO DO May 08, 2016 12:13
[2016-05-07 09:50] LABS: CHOLESTEROL 102 MG/DL (< 200); DIRECT LDL 48 MG/DL (1-129); TRIGLYCERIDES 120 MG/DL (<150); VLDL CHOLESTEROL 24 MG/DL (5-40)
[2016-05-07] MEDS: HEParin 1000 UNIT/ML BOLUS (FULL THERAPY) IV PRN (09:58)
--- NOTE | 2016-05-07 10:31 | Diagnostic Imaging Report ---
INDICATION: Dyspnea. TECHNIQUE: Single view chest 5:14 AM. CORRELATION STUDY: 05/06/2016 FINDINGS: There is rather pronounced cardiac enlargement as well as prominent and widened mediastinum. Findings do appear to be perhaps slightly increased from prior study. Pulmonary vasculature is also slightly increased. There has been development of areas of atelectasis at the perihilar and basilar regions. Some fluid or thickening along the fissure plane in the right midlung. The left diaphragm is largely obscured likely owing to the cardiac enlargement. IMPRESSION: 1. Increasing cardiac enlargement as well as some vascular congestion developed since prior study. Dictated by: Dictated on workstation # [id number]
[2016-05-07] MEDS ORDERED: LIDOCAINE 2% VISCOUS 15 ML UDC ONE (11:14)
[2016-05-07] MEDS ORDERED: proPOfol 200 MG/20 ML (DIPRIVAN) VIAL IV ONE ×2 (12:38→12:45)
[2016-05-07] MEDS ORDERED: MIDAZOLAM 5 MG/5 ML (VERSED) VIAL ONE (12:42)
[2016-05-07] MEDS ORDERED: NS IV 1000 ML 1,000 ML ONE (12:51)
--- NOTE | 2016-05-07 13:02 | Cardiac Procedure Note-CS/ASA ---
Pre-Procedure Note Pre-Op Procedure Note H&P Reviewed The H&P was reviewed, patient examined and no changes noted. Date H&P Reviewed: May 07, 2016 Time H&P Reviewed: 13:02 Conscious Sedation Pre-Proced Time Reviewed: 13:02 ASA Class: 3 Airway Mallampati Classification: ([place] appropriate class) I. II. III, IV Lungs Heart ASA score ASA 1: a normal healthy patient ASA 2: a patient with a mild systemic disease (mid diabetes, controlled hypertension, obesity x ASA 3: a patient with a severe systemic disease that limits activity (angina , COPD, prior Myocardial infarction) ASA 4: a patient with an incapacitating disease that is a constant threat to life (CHF, renal failure) ASA 5: a moribund patient not expected to survive 24 hrs. (ruptured aneurysm) ASA 6: a declared brain patient whose organs are being harvested. For emergent operations, add the letter E after the classification Grade 3 Sedation Plan: Analgesia, Amnesia, Plan communicated to team members, Discussed options with patient/fam, Discussed risks with patient/fam Note The patient is an appropriate candidate to undergo the planned procedure, sedation, and anesthesia. The patient immediately re-assessed prior to indication. GERMAIN MOSHER MD May 07, 2016 13:02
--- NOTE | 2016-05-07 13:19 | Progress Note-Standard ---
Standard Progress Note Progress Notes/Assess & Plan Progress/Assessment & Plan 05/07/16 [id number] Called to ICU 11 for sedation for SYLVESTER/Cardioversion. Patient has a history of this procedure in 2012 with anesthesia. Record reviewed et patient tolerated well. Patient denies drug allergies. Total of Versed 2 mg and Propofol 100mg IV given for SYLVESTER. O2 at 4L/NC. VSS. Unable to proceed with cardioversion after SYLVESTER. Reported off to PAGE Garza. DWAINE SKINNER CRNA May 07, 2016 13:19
--- NOTE | 2016-05-07 13:21 | Cardiology Progress Note ---
Subjective Subjective/Events-last exam Patient is in bed, still in atrial fibrillation with borderline tachycardic, had a SYLVESTER done earlier which showed questionable thrombus in the left atrial appendage, no cardioversion was done. Review of Systems General: No Chills, No Night Sweats, No Fatigue, No Malaise, No Appetite, No Other HEENT: No Head Aches, No Visual Changes, No Eye Pain, No Ear Pain, No Dysphasia , No Sinus Congestion, No Post Nasal Drip, No Sore Throat, No Other Pulmonary: No Dyspnea, No Cough, No Pleuritic Chest Pain, No Other Cardiovascular: No: Chest Pain, Edema, Lt Headedness, Orthopnea, Other, Palpitations, Paroxysmal Noc. Dyspnea Objective-Cardiology Exam Last Set of Vital Signs Vital Signs 05/07/16 05/07/16 06:00 10:00 Pulse 114 Resp 19 B/P 114/89 Pulse Ox 93 O2 Delivery Room Air O2 Flow Rate 2.00 Capillary Refill : Less Than 3 Seconds I&O Bad tableGeneral: Alert, Oriented X3, Cooperative HEENT: Atraumatic, PERRLA Neck: Supple, No JVD, No Thyromegaly Lungs: Clear to Auscultation, Normal Air Movement Heart: Normal S1, Normal S2, No Murmurs, Other (Irregular rhythm) Abdomen: Normal Bowel Sounds, Soft, No Tenderness, No Hepatosplenomegaly, No Masses Extremities: No Clubbing, No Cyanosis, No Edema, Normal Pulses, No Tenderness/ Swelling Skin: No Rashes, No Breakdown, No Significant Lesion Neuro: Normal Gait, Normal Speech, Strength at 5/5 X4 Ext, Normal Tone, Sensation Intact Psych/Mental Status: Mental Status NL, Mood NL Results Lab Laboratory Tests 05/07/16 02:26 A/P-Cardiology Admission Diagnosis Afib with RVR CAD HTN HLP Assessment/Plan Paroxysmal atrial fibrillation, back in atrial fibrillation with rapid ventricular response, had a SYLVESTER done earlier which showed questionable thrombus. Moderate mitral regurgitation, mild aortic regurgitation, still borderline tachycardic on Cardizem drip, I will change him to Cardizem orally and add beta blockers and monitor his tolerance and response. [id number] score is 3, yearly risk of stroke without oral anticoagulation is 3.2 percent. We discussed in length the management plan, recommended oral anticoagulation, patient is concerned about his history of GI bleed, understand the risk of stroke, agreed on starting oral anticoagulation for now, I will start Eliquis and stop heparin drip CAD- history of unsuccessful stenting of an ostial right coronary by Dr. Velazco in July 2012. He was reported to have 80% ostial stenosis of the right coronary. The rest of the coronaries did not indicate significant disease. currently asymptomatic. Continue to monitor Hypertension, currently borderline hypotensive on Cardizem drip, continue to monitor closely. HLP- maintained on statin as outpatient. Continue to monitor. Hx LBBB History of GI bleed in 07/2015 with gastric ulcer per EGD by Dr. Jalloh. Clinical Quality Measures DVT/VTE Risk/Contraindication: Risk Factor Score Per Nursin RFS Level Per Nursing on Admit: 3=High GERMAIN MOSHER MD May 07, 2016 13:21
[2016-05-07] MEDS ORDERED: DIGOXIN 0.25 MG/ML (LANOXIN) 2 ML AMP IV NR (13:35)
[2016-05-07] MEDS: DILTIAZEM 60 MG (CARDIZEM) TAB PO SCH ×3 (14:11→23:18)
[2016-05-07] MEDS: APIXABAN 5 MG (ELIQUIS) TABLET PO SCH ×2 (14:11→20:17)
[2016-05-07] MEDS: ATORVASTATIN 10 MG (LIPITOR) TABLET PO SCH (20:17)
[2016-05-07] MEDS: DIGOXIN 0.25 MG (LANOXIN) TAB PO SCH (20:17)
[2016-05-07] MEDS: QUEtiapine 25 MG (SEROquel) TAB IMMEDIATE RELEASE PO PRN (22:20)
[2016-05-08] VITALS (8 sets, daily range): BP systolic 103–157; BP diastolic 52–83
[2016-05-08] MEDS ORDERED: VERAPAMIL 10 MG/4 ML (CALAN) VIAL IV ONE ×2 (01:45→06:30)
[2016-05-08 04:27] LABS: MEAN PLATELET VOLUME 9.7 FL (7.4-10.4); RED CELL DISTRIBUTION WIDTH 14.3 % (10.0-14.5); WHITE BLOOD COUNT 4.4 10^3/uL (4.3-11.0)
[2016-05-08 04:53] LABS: ALANINE AMINOTRANSFERASE 17 U/L (0-55); ALBUMIN 3.9 G/DL (3.2-4.5); ANION GAP 10 MMOL/L (5-14); ASPARTATE AMINO TRANSFERASE 15 U/L (5-34); BILIRUBIN,TOTAL 0.5 MG/DL (0.1-1.0); BLOOD UREA NITROGEN 12 MG/DL (7-18); BUN/CREATININE RATIO 11; CALCIUM 8.4 MG/DL (8.5-10.1); CARBON DIOXIDE 22 MMOL/L (21-32); CHLORIDE 107 MMOL/L (98-107); CREATININE SERUM 1.07 MG/DL (0.60-1.30); GFR ESTIMATED > 60; GLUCOSE 108 MG/DL (70-105); MAGNESIUM 2.4 MG/DL (1.8-2.4); SODIUM 139 MMOL/L (135-145); TOTAL PROTEIN 6.6 G/DL (6.4-8.2)
[2016-05-08 05:04] LABS: DIGOXIN 0.77 NG/ML (0.80-2.00)
[2016-05-08] MEDS: DILTIAZEM 60 MG (CARDIZEM) TAB PO SCH (05:34)
[2016-05-08] MEDS: CATHETER FLUSH 10 ML SYR IV SCH ×3 (05:35→21:03)
[2016-05-08] MEDS ORDERED: DILTIAZEM 30 MG (CARDIZEM) TAB PO SCH (06:30)
[2016-05-08] MEDS ORDERED: DILTIAZEM 240 MG (CARDIZEM CD) CAP PO ONE (07:30)
[2016-05-08] MEDS: DIGOXIN 0.25 MG (LANOXIN) TAB PO SCH (07:36)
--- NOTE | 2016-05-08 08:17 | Cardiology Progress Note ---
Subjective Subjective/Events-last exam Patient is in bed, still having shortness of breath and palpitation, tachycardiac last night Review of Systems General: No Chills, No Night Sweats, No Fatigue, No Malaise, No Appetite, No Other HEENT: No Head Aches, No Visual Changes, No Eye Pain, No Ear Pain, No Dysphasia , No Sinus Congestion, No Post Nasal Drip, No Sore Throat, No Other Pulmonary: DyspneaNo Cough, No Pleuritic Chest Pain, No Other Cardiovascular: : PalpitationsNo: Chest Pain, Edema, Lt Headedness, Orthopnea, Other, Paroxysmal Noc. Dyspnea Objective-Cardiology Exam Last Set of Vital Signs Vital Signs 05/07/16 05/08/16 05/08/16 06:00 05:35 06:29 Temp 99.0 Pulse 152 Resp 20 B/P 157/73 Pulse Ox 98 O2 Delivery Room Air O2 Flow Rate 2.00 Capillary Refill : Less Than 3 Seconds I&O Intake and Output 05/08/16 00:00 Intake Total 2800 ml Output Total 1395 ml Balance 1405 ml Intake Oral 2070 ml IV Total 730 ml Output Urine Total 1395 ml # Voids 3 General: Alert, Oriented X3, Cooperative HEENT: Atraumatic, PERRLA Neck: Supple, No JVD, No Thyromegaly Lungs: Clear to Auscultation, Normal Air Movement Heart: Normal S1, Normal S2, No Murmurs, Other (Irregular rhythm, tachycardia) Abdomen: Normal Bowel Sounds, Soft, No Tenderness, No Hepatosplenomegaly, No Masses Extremities: No Clubbing, No Cyanosis, No Edema, Normal Pulses, No Tenderness/ Swelling Skin: No Rashes, No Breakdown, No Significant Lesion Neuro: Normal Gait, Normal Speech, Strength at 5/5 X4 Ext, Normal Tone, Sensation Intact Psych/Mental Status: Mental Status NL, Mood NL Results Lab Laboratory Tests 05/08/16 03:37 05/08/16 03:57 A/P-Cardiology Admission Diagnosis Afib with RVR CAD HTN HLP Assessment/Plan Paroxysmal atrial fibrillation, back in atrial fibrillation with rapid ventricular response, SYLVESTER showed questionable thrombus in MARLENE, I will increase cardizem, continue digoxin and add Lopressor and monitor BP and HR [id number] score is 3, yearly risk of stroke without oral anticoagulation is 3.2 percent. We discussed in length the management plan, recommended oral anticoagulation, patient is concerned about his history of GI bleed, understand the risk of stroke, agreed on starting oral anticoagulation for now, on Eliquis CAD- history of unsuccessful stenting of an ostial right coronary by Dr. Velazco in July 2012. He was reported to have 80% ostial stenosis of the right coronary. The rest of the coronaries did not indicate significant disease. currently asymptomatic. Continue to monitor Hypertension, currently borderline hypotensive on Cardizem drip, continue to monitor closely. HLP- maintained on statin as outpatient. Continue to monitor. Hx LBBB History of GI bleed in 07/2015 with gastric ulcer per EGD by Dr. Jalloh. Clinical Quality Measures DVT/VTE Risk/Contraindication: Risk Factor Score Per Nursin RFS Level Per Nursing on Admit: 3=High GERMAIN MOSHER MD May 08, 2016 08:17
[2016-05-08] MEDS ORDERED: meTOprolol 5 MG/5 ML (LOPRESSOR) VIAL IV NR (08:25)
[2016-05-08] MEDS: APIXABAN 5 MG (ELIQUIS) TABLET PO SCH ×2 (09:45→21:03)
[2016-05-08] MEDS: ASPIRIN E.C. 81 MG (ECOTRIN) TAB PO SCH (09:45)
[2016-05-08] MEDS: meTOprolol TARTRATE 50 MG (LOPRESSOR) TAB PO SCH ×2 (09:45→21:03)
[2016-05-08] MEDS: DILTIAZEM 240 MG (CARDIZEM CD) CAP PO SCH ×2 (09:46→21:03)
[2016-05-08] MEDS ORDERED: CHLORASEPTIC LOZENGE MM PRN (10:05)
--- NOTE | 2016-05-08 10:23 | Progress Note-Hospitalist ---
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 Pt has planned cardioversion [id number] Patient Interview: Pt states he had shock tx 3.5 years ago. Pt states his PCP is Dr. Lujan. 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 Physical exam was stable. Pt denies using CPAP or night time O2. Pt declines pain medicine but would like something for his dry throat. Pt states he will most likely spend another night at [facility]. Pt states he was admitted to [facility] in July. Pt states he had a hiatal hernia that ruptured a blood vessel. Pt states he was taken off Warfarin at this time. Scribed by Toro Salvador under the direct supervision of Dr. Aguero. 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 Low presser started. Increased Cardizem po. Pt is on Eliquis. HR was around 160 this morning. Patient Interview: Pt slept well last night. Pt is ready for DC when able. no fever vital signs stable, pleasant, oriented 3, at bedside Irregular irregular rhythm with heart rate of 98 Clear to auscultation bilaterally Trace edema lower extremities Assessment: Recurrent type of AF s/p cardioversion 2012 now with thrombus noted in the atrium on SYLVESTER precluding cardioversion but still having rapid ventricular response on maximum medications of antiarrhythmics HLP CAD HTN Depression Plan: Continue meds and monitor pt - consider DC plan Appreciate cardiology input on this very difficult case Anticoagulation Scribed by David Whitehead under the direct supervision of Dr. Aguero. KWADWO AGUERO DO May 08, 2016 10:23
--- NOTE | 2016-05-08 10:41 | TEE REPORT ---
SYLVESTER REPORT DATE OF PROCEDURE: 05/07/2016 REFERRING PHYSICIAN: Dr. Gagnon BRIEF HISTORY: Mr. Whitaker Is a 71-year-old gentleman who was admitted with atrial fibrillation and rapid ventricular response. He was scheduled for SYLVESTER possible cardioversion. PROCEDURE NOTE: After explaining the procedure to the patient, all pros and cons were explained. All questions were answered. The patient signed a consent, then he was placed on the left lateral decubitus position. The oropharynx was anesthetized, anesthesia was called. After conscious sedation the patient had the SYLVESTER probe introduced through the mouth to the esophagus and then to the stomach. Multiple views were obtained. At the end of the procedure probe was removed. No complication noted. FINDINGS: 1. The left ventricle is normal in size with normal contractility. Estimated ejection fraction 50%. 2. Left atrium is prominent. Left atrial appendage is prominent. Low velocity by Doppler across left atrial appendage. Echogenic density was noted. In the left atrial appendage suggestive of thrombus. Smoke was noted in the left atrial appendage. 3. The right atrium is prominent. Right ventricle is normal in size. 4. Intra-atrial septum was evaluated using color Doppler flow and agitated saline as a contrast media. There is some bubbles crossing from the right to the left suggestive of small patent foramen ovale, not visualized by color Doppler flow. 5. Mitral valve is normal in morphology with moderate mitral regurgitation noted by color Doppler flow. No mitral valve prolapse or stenosis. 6. Aortic valve is trileaflet with normal opening and closing pattern. No significant aortic stenosis. Mild aortic regurgitation noted by color Doppler flow. 7. Tricuspid valve and pulmonic valve were normal. 8. No pericardial effusion. CONCLUSION: 1. Enlarged left atrial appendage with smoke in the left appendage and echogenic density suggestive of thrombus. 2. Questionable small patent foramen ovale. 3. Normal left ventricular size with estimated ejection fraction 50%. 4. Moderate mitral regurgitation. Mild aortic regurgitation. Job ID: [id number] Dictated Date: 05/07/2016 13:28:57 Sheet Metal Supervisor Date: 05/08/2016 10:34:13/regulo
--- NOTE | 2016-05-08 13:12 | Pulmonary Progress Note ---
Subjective Subjective/Events-last exam sitting up in chair with tele on; denies shortness of breath except when "afib is acting up"; pt reports he does snore and that she has heard him stop breathing several times; pt is not sure about DYLAN and testing, we talked in length of risk factors Exam Exam Vital Signs Date Time Temp Pulse Resp B/P Pulse Ox O2 Delivery O2 Flow Rate FiO2 05/08/16 08:00 97.8 145 18 130/75 94 Room Air 05/08/16 07:00 155 05/08/16 06:29 152 157/73 05/08/16 05:35 99.0 130 20 138/82 98 Room Air 05/08/16 01:45 147/83 05/08/16 01:00 140 05/08/16 00:00 99.5 102 20 130/81 97 Room Air 05/07/16 20:00 100.4 99 20 102/58 96 Room Air 05/07/16 20:00 98 Room Air 05/07/16 19:00 112 05/07/16 16:30 109 21 112/85 94 Room Air 05/07/16 16:00 Room Air 05/07/16 16:00 110 18 112/ 91 Room Air 05/07/16 15:00 133 24 89/ 92 Room Air 05/07/16 14:29 99.3 05/07/16 14:00 128 18 110/ 92 Room Air I & O 05/08/16 06:59 Intake Total 2980 ml Output Total 825 ml Balance 2155 ml General Appearance: No Apparent Distress WD/WN Chronically ill HEENT: PERRL/EOMI Normal ENT Inspection Pharynx Normal Neck: Full Range of Motion Normal Inspection Non Tender Supple Carotid Bruit Respiratory: Chest Non Tender Lungs Clear Normal Breath Sounds No Accessory Muscle Use No Respiratory Distress Cardiovascular: No Edema No Gallop No JVD No Murmur Normal Peripheral Pulses Irregularly Irregular Tachycardia Capillary Refill: Less Than 3 Seconds Gastrointestinal: normal bowel sounds non tender soft Extremity: Normal Capillary Refill Normal Inspection Normal Range of Motion Non Tender No Calf Tenderness No Pedal Edema Neurologic/Psychiatric: Alert Oriented x3 No Motor/Sensory Deficits Normal Mood/Affect Skin: Normal Color Warm/Dry Lymphatic: No Adenopathy Results Lab Laboratory Tests 05/07/16 02:26 05/08/16 03:37 05/08/16 03:57 Assessment/Plan Assessment/Plan Afib with RVR -cardiology following and treating -Eliquis -SYLVESTER with electrical cardioversion - was not successful Poss DYLAN -will f/u w/ outpt testing Dyspnea -denies when not in afib CAD- with stents History of GI bleed in 07/2015 with gastric ulcer Clinical Quality Measures DVT/VTE Risk/Contraindication: Risk Factor Score Per Nursin RFS Level Per Nursing on Admit: 3=High FLORENTIN LECHUGA APRN May 08, 2016 13:12
[2016-05-08] MEDS: ATORVASTATIN 10 MG (LIPITOR) TABLET PO SCH (21:03)
[2016-05-08] MEDS: QUEtiapine 25 MG (SEROquel) TAB IMMEDIATE RELEASE PO PRN (21:03)
[2016-05-09] VITALS: BP 99/50
[2016-05-09 04:00] VITALS: BP 118/68
[2016-05-09] MEDS: CATHETER FLUSH 10 ML SYR IV SCH (04:04)
[2016-05-09 04:42] LABS: MEAN PLATELET VOLUME 10.1 FL (7.4-10.4); RED BLOOD COUNT 5.04 10^6/uL (4.35-5.85); RED CELL DISTRIBUTION WIDTH 14.4 % (10.0-14.5); WHITE BLOOD COUNT 7.7 10^3/uL (4.3-11.0)
[2016-05-09 05:06] LABS: ANION GAP 12 MMOL/L (5-14); BLOOD UREA NITROGEN 14 MG/DL (7-18); BUN/CREATININE RATIO 14; CALCIUM 8.6 MG/DL (8.5-10.1); CARBON DIOXIDE 21 MMOL/L (21-32); CHLORIDE 108 MMOL/L (98-107); GFR ESTIMATED > 60; GLUCOSE 110 MG/DL (70-105); MAGNESIUM 2.4 MG/DL (1.8-2.4); PHOSPHORUS 4.3 MG/DL (2.3-4.7); POTASSIUM 4.3 MMOL/L (3.6-5.0); SODIUM 141 MMOL/L (135-145)
[2016-05-09 08:30] VITALS: BP 118/78
[2016-05-09] MEDS: APIXABAN 5 MG (ELIQUIS) TABLET PO SCH (08:42)
[2016-05-09] MEDS: meTOprolol TARTRATE 50 MG (LOPRESSOR) TAB PO SCH (08:42)
[2016-05-09] MEDS: DILTIAZEM 240 MG (CARDIZEM CD) CAP PO SCH (08:42)
[2016-05-09] MEDS: ASPIRIN E.C. 81 MG (ECOTRIN) TAB PO SCH (08:42)
--- NOTE | 2016-05-09 09:31 | Cardiology Progress Note ---
Subjective Subjective/Events-last exam Patient is feeling better, still having some cough productive of whitish sputum. No fever or chills. No palpitation, heart rate is better controlled. Review of Systems General: No Chills, No Night Sweats, No Fatigue, No Malaise, No Appetite, No Other HEENT: No Head Aches, No Visual Changes, No Eye Pain, No Ear Pain, No Dysphasia , No Sinus Congestion, No Post Nasal Drip, No Sore Throat, No Other Pulmonary: No Dyspnea, CoughNo Pleuritic Chest Pain, No Other Cardiovascular: No: Chest Pain, Edema, Lt Headedness, Orthopnea, Other, Palpitations, Paroxysmal Noc. Dyspnea Objective-Cardiology Exam Last Set of Vital Signs Vital Signs 05/07/16 05/09/16 06:00 08:30 Temp 98.8 Pulse 78 Resp 16 B/P 118/78 Pulse Ox 94 O2 Delivery Room Air O2 Flow Rate 2.00 Capillary Refill : Less Than 3 Seconds I&O Intake and Output 05/09/16 00:00 Intake Total 3120 ml Balance 3120 ml Intake Oral 3120 ml # Voids 14 # Bowel Movements 1 General: Alert, Oriented X3, Cooperative HEENT: Atraumatic, PERRLA Neck: Supple, No JVD, No Thyromegaly Lungs: Normal Air Movement, Other (Left lower lobe Rales) Heart: Normal S1, Normal S2, No Murmurs, Other (Irregular rhythm, rate is controlled) Abdomen: Normal Bowel Sounds, Soft, No Tenderness, No Hepatosplenomegaly, No Masses Extremities: No Clubbing, No Cyanosis, No Edema, Normal Pulses, No Tenderness/ Swelling Skin: No Rashes, No Breakdown, No Significant Lesion Neuro: Normal Gait, Normal Speech, Strength at 5/5 X4 Ext, Normal Tone, Sensation Intact Psych/Mental Status: Mental Status NL, Mood NL Results Lab Laboratory Tests 05/09/16 03:30 A/P-Cardiology Admission Diagnosis Afib with RVR CAD HTN HLP Assessment/Plan Paroxysmal atrial fibrillation, heart rate is better controlled on the current medication, SYLVESTER showed a suitable thrombus in the left atrial appendage. Maintained on Eliquis at this time, continue on Cardizem and metoprolol. Discussed his discharge medication. Encouraged compliance with medication. [id number] score is 3, yearly risk of stroke without oral anticoagulation is 3.2 percent. We discussed in length the management plan, recommended oral anticoagulation, patient is concerned about his history of GI bleed, understand the risk of stroke, agreed on starting oral anticoagulation for now, on Eliquis , patient will need a coupon for 30 day supply prior to discharge Cough productive of whitish sputum. Last chest x-ray did not show any infiltrate, white count are normal. I will reevaluate chest x-ray today. CAD- history of unsuccessful stenting of an ostial right coronary by Dr. Velazco in July 2012. He was reported to have 80% ostial stenosis of the right coronary. The rest of the coronaries did not indicate significant disease. currently asymptomatic. Continue to monitor Hypertension, currently borderline hypotensive on Cardizem drip, continue to monitor closely. HLP- maintained on statin as outpatient. Continue to monitor. Hx LBBB History of GI bleed in 07/2015 with gastric ulcer per EGD by Dr. Jalloh. Clinical Quality Measures DVT/VTE Risk/Contraindication: Risk Factor Score Per Nursin RFS Level Per Nursing on Admit: 3=High GERMAIN MOSHER MD May 09, 2016 09:31
[2016-05-09] MEDS ORDERED: METO50TA2 PO (09:32)
[2016-05-09] MEDS ORDERED: DIGO250T15 PO (09:32)
[2016-05-09] MEDS ORDERED: APIX5TAB PO (09:32)
--- NOTE | 2016-05-09 09:51 | Diagnostic Imaging Report ---
DATE: 05/09/2016. INDICATION: Cough. TECHNIQUE: Two-view chest at 0954 hours. COMPARISON: 05/07/2016. FINDINGS: Heart size enlarged. Vasculature within normal limits. Lung orellana overall relatively clear on followup and improved in their overall aeration. IMPRESSION: Cardiac enlargement improved. Vasculature relatively normal on followup. Improved aeration of the lung orellana are relatively clear. Dictated by: Dictated on workstation # [id number]
[2016-05-09] MEDS ORDERED: RIVA20TA PO (09:52)
[2016-05-09 11:10] VITALS: BP 101/67
[2016-05-09 12:29] VITALS: BP 101/67
[2016-05-09] MEDS ORDERED: RIVAROXABAN 20 MG TABLET (XARELTO) PO SCH (17:00)
[2016-05-10] MEDS ORDERED: DILTIAZEM 180 MG (CARDIZEM CD) CAP PO SCH (09:00)
--- NOTE | 2016-05-28 11:46 | Discharge Summary-Hospitalist ---
Diagnosis/Chief Complaint Date of Admission May 06, 2016 at 12:29 Date of Discharge May 09, 2016 at 11:18 Discharge Date: May 09, 2016 Admission Diagnosis Recurrent type of AF s/p cardioversion 2012 HLP CAD HTN Depression Discharge Diagnosis Assessment: Recurrent type of AF s/p cardioversion 2012 now with thrombus noted in the atrium on SYLVESTER precluding cardioversion but still having rapid ventricular response on maximum medications of antiarrhythmics requiring additional hospital day then DC on appropriate meds HLP CAD HTN Depression patient seen and examined didn't documented in prior H&P note Reviewed above information and deemed correct Continue plan per H&P 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 Pt has planned cardioversion [id number] Patient Interview: Pt states he had shock tx 3.5 years ago. Pt states his PCP is Dr. Lujan. 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 Physical exam was stable. Pt denies using CPAP or night time O2. Pt declines pain medicine but would like something for his dry throat. Pt states he will most likely spend another night at [facility]. Pt states he was admitted to [facility] in July. Pt states he had a hiatal hernia that ruptured a blood vessel. Pt states he was taken off Warfarin at this time. Scribed by Toro Salvador under the direct supervision of Dr. Gagnon. Hospital course: Patient had a lengthy hospital course he was admitted for a defibrillation with rapid ventricular response similar to an episode back in 2012. SYLVESTER was performed prior to cardioversion revealing thrombus cities placed on anticoagulation and rate control but a defibrillation with rapid ventricular response was resistant to multiple aggressive medication and ultimately he was placed on digoxin and beta melinda with good results and he was able to be discharged with close follow-up with cardiology for adequate anticoagulation for thrombosis resolution prior to cardioversion that would be done in the future. Discharge Summary Discharge Physical Examination Allergies: Coded Allergies: No Known Drug Allergies (Unverified , 12/13/08) Discharge Home Medications: Active Scripts Active Xarelto (Rivaroxaban) 20 Mg Tablet 20 Mg PO DAILY Metoprolol Tartrate 50 Mg Tablet 50 Mg PO BID Digox (Digoxin) 250 Mcg Tablet 0.25 Mg PO 20 Reported [Biopro-Q] 1 Tab PO DAILY [[place]-Q] 1 Tab PO DAILY [Magnical-D] 1 Tab PO DAILY [Optimal-V] 1 Tab PO DAILY [Optimal-M] 1 Tab PO DAILY [Is2 Liquid] 1 Oz PO DAILY [Moa Liquid] 1 Oz PO DAILY Antioxidant Softgel (Beta-Carotene(A) W-C & E/Min) 1 Each Capsule 1 Cap PO DAILY Melatonin 10 mg Tablet (Melatonin/Pyridoxine HCl (B6)) 1 Each Tab.mphase 10 Mg PO HS PRN Bilberry (Bilberry Fruit) 500 Mg Capsule 500 Mg PO DAILY Garlic 1,000 Mg Capsule 1,000 Mg PO DAILY Quetiapine Fumarate 25 Mg Tablet 25 Mg PO HS PRN Furosemide 40 Mg Tablet 40 Mg PO DAILY PRN Diltiazem ER (Diltiazem HCl) 360 Mg Capsule.er 360 Mg PO DAILY Lutein 20 Mg Capsule 20 Mg PO DAILY Atorvastatin Calcium 10 Mg Tablet 10 Mg PO HS Duloxetine HCl 60 Mg Capsule.dr 60 Mg PO DAILY Instructions to patient/family Please see electonic discharge instructions given to patient. Clinical Quality Measures DVT/VTE Risk/Contraindication: Risk Factor Score Per Nursin RFS Level Per Nursing on Admit: 3=High KWADWO GAGNON DO May 28, 2016 11:46
== END 2016-05-09 11:18 | disposition home or self-care (01) | DRG 310 ==
LOC: EDUNIT# 10:46 → ER 10:48 → ICU 12:29 → CSD 05-07 17:23 → ICU 05-08 13:57
PROVIDERS: ADMIT Internal Medicine; ATTEND Internal Medicine
DX: I48.0 Paroxysmal atrial fibrillation (principal); I51.3 Intracardiac thrombosis, not elsewhere classified; I10 Essential (primary) hypertension; I25.10 Atherosclerotic heart disease of native coronary artery without angina pectoris; I08.0 Rheumatic disorders of both mitral and aortic valves; I42.9 Cardiomyopathy, unspecified; E78.00 Pure hypercholesterolemia, unspecified; R73.9 Hyperglycemia, unspecified; F41.9 Anxiety disorder, unspecified; F32.9 Major depressive disorder, single episode, unspecified; R05 Cough; Z79.82 Long term (current) use of aspirin; Z87.11 Personal history of peptic ulcer disease; Z95.5 Presence of coronary angioplasty implant and graft
CPT/HCPCS: 36415; 71010; 71020; 80048; 80053; 80061; 80162; 83735; 83874; 83880; 84100; 84484; 85025; 85027; 85610; 85730; 93005; 93041; 93321; 93325; 96365; 96366; 96367

== ENCOUNTER 2016-07-15 19:40 | Outpatient (CLI) | payer MEDICARE ==
[~2016-07-15 19:40] MED LIST changes: +APIX5TAB PO; +ASPI-983 PO; +BETA1CAP2 PO; +DIGO250T15 PO; +GARL10002 PO; +MELA1TAB20 PO; +METO50TA2 PO; +QUET25TA73 PO; +RIVA20TA PO; +[UNRECOGNIZED DRUG - CODE] PO; +[UNRECOGNIZED DRUG - OTHER] PO; +[UNRECOGNIZED DRUG - OTHER] PO; +[UNRECOGNIZED DRUG - OTHER] PO; +[UNRECOGNIZED DRUG - OTHER] PO; +[UNRECOGNIZED DRUG - OTHER] PO; +[UNRECOGNIZED DRUG - OTHER] PO
== END 2016-07-16 06:15 | disposition home or self-care (01) ==
LOC: SLEEP 19:40
PROVIDERS: ATTEND Internal Medicine Critical Care Medicine
DX: G47.50 Parasomnia, unspecified (principal); G47.30 Sleep apnea, unspecified; R06.83 Snoring; E66.09 Other obesity due to excess calories; I48.2 Chronic atrial fibrillation
CPT/HCPCS: 95811